=== PATIENT | female | born 1955 | race Caucasian/White ===

== ENCOUNTER 2019-04-22 09:53 | Emergency (ER) | payer BC ==
[~2019-04-22] VITALS: Ht 162.6 cm; Wt 88.6 kg
[2019-04-22] MEDS ORDERED: COZAAR100 MG (10:07)
[2019-04-22] MEDS ORDERED: MOBIC 7.5MG7.5 MG (10:08)
[2019-04-22] MEDS ORDERED: NIACIN250 M2 PO (10:08)
[2019-04-22] MEDS ORDERED: MEVACOR40 MG (10:08)
[2019-04-22] MEDS ORDERED: ASPIRIN 81M81 MG/TA2 PO (10:09)
[2019-04-22 13:08] VITALS: BP 136/89; PULSE 63; TEMP 99
== END 2019-04-22 13:10 | disposition home or self-care (01) ==
LOC: COL.ER 09:53
DX: M70.32 Other bursitis of elbow, left elbow (principal); L03.114 Cellulitis of left upper limb; Z79.82 Long term (current) use of aspirin

== ENCOUNTER 2022-09-30 09:18 | Day surgery (SDC) | payer MEDICARE ==
[~2022-09-30] VITALS: Ht 162.6 cm; Wt 98.9 kg
[~2022-09-30 09:18] MED LIST: ASPIRIN 81M81 MG/TA2 PO; CALCIUM 600600 MG PO; COZAAR 25MG25 MG/TAB PO; COZAAR100 MG; FOSAMAX 70MG TA70 MG PO; LIPITOR20 MG PO; MEVACOR40 MG; MOBIC 7.5MG7.5 MG; MULTI VITAMINS1 TAB PO; NEURONTIN600 MG/TAB PO; NIACIN250 M2 PO; NORCO 325 MG-51 TAB PO
[2022-09-30 10:13] VITALS: BP 123/80; PULSE 46; TEMP 97.7
[2022-09-30 12:44] VITALS: BP 98/60; PULSE 49; TEMP 97.8
[2022-09-30 13:00] VITALS: BP 104/62; PULSE 48
[2022-09-30 13:15] VITALS: BP 116/64; PULSE 46
[2022-09-30 13:30] VITALS: BP 118/60; PULSE 49
--- NOTE | 2022-09-30 20:03 | NUR ---
1244 PT TO [facility] [place] 8 FROM OR S/P LEFT BREAST RECISION WITH BIOPSIES PLACED ON MONITOR, VS WDL ON RA (HR IN 40'S - BASELINE TO PT). INCSION TO L BREAST OVER PAST INCISION, CLOSED WITH GLUE -CDI RECEIVED REPORT AND ASSUMED CARE OF PT FROM HAI CAMACHO PLAN TO CALL ~20MIN PRIOR TO DEPARTURE FOR RIDE HOME. A&O, NAD, DENIES COMPLAINT. PROVIDED CRANBERRY JUICE AND MUFFIN FOLLOWING MAC SEDATION - TOLERATED WITHOUT INCIDENT. PT HAS REMAINED A&O, NAD, VSS ON RA, TOLERATING PO, IS WITHOUT SIGNIFICANT COMPLAINT, WITH STEADY GAIT THRU OUT [facility] [place] [facility], WOUND CDI. 1340 IV D/C'D. D/C INSTRUCTIONS, FOLLOW UP APPT REVIEWED AND HANDED TO PT. ALL QUESTIONS AND CONCERNS ADDRESSED TO PT SATISFACTION. 1350 TAKEN TO EXIT VIA W/C BY [facility] [place] [facility] WITH ALL BELONGINGS AND PAPERWORK IN HAND, ASSISTED INTO PASSENGER SEAT OF POV. TO DRIVE HOME.
== END 2022-09-30 13:50 | disposition home or self-care (01) ==
LOC: SDCO 09:18
DX: D05.12 Intraductal carcinoma in situ of left breast (principal)
CPT/HCPCS: J0690; J2704; J3010; J7120

== ENCOUNTER 2022-10-26 11:18 | Day surgery (SDC) | payer MEDICARE ==
[~2022-10-26] VITALS: Ht 162.6 cm; Wt 98.7 kg
[2022-10-26 11:43] VITALS: BP 130/71; PULSE 55; TEMP 97.9
[2022-10-26 15:15] VITALS: BP 100/52; PULSE 50; TEMP 96.8
[2022-10-26 15:30] VITALS: BP 100/76; PULSE 50
[2022-10-26 15:45] VITALS: BP 114/64; PULSE 50
[2022-10-26 16:00] VITALS: BP 127/67; PULSE 52
--- NOTE | 2022-10-26 16:15 | NUR ---
1515 RETURNS TO ROOM 7 PER CART. AWAKE, ALERT. RESP UNLABORED. HOB ELEVATED 40 DEGREES. INCISION LEFT BREAST INTACT. NO REDNESS, DRAINAGE OR EDEMA OBSERVED. DENIES DISCOMFORT. VITAL SIGNS OBTAINED. CALL LIGHT AT SIDE 1530 TOLERATES PO JUICE AND MUFFIN WITHOUT NAUSEA. 1545 DISCHARGE INSTRUCTIONS REVIEWED. PATIENT VERBALIZES UNDERSTANDING. COPY PROVIDED IN DISCHARGE FOLDER 1600 SITS ON EDGE OF CART. DRESSES SELF. WILL AWAIT 'S ARRIVAL FOR TRANSPORT HOME
== END 2022-10-26 16:15 | disposition home or self-care (01) ==
LOC: SDCO 11:18
DX: D05.12 Intraductal carcinoma in situ of left breast (principal)
CPT/HCPCS: J0690; J1100; J1885; J2405; J2704; J3010; J7120

== ENCOUNTER → 2022-11-03 | Outpatient (CLI) | payer MEDICARE, OTHER | LOC: COL.RAD 12:53 → MC.RAD 13:30 → COL.RAD 13:30 | DX: D05.12 Intraductal carcinoma in situ of left breast (principal) | CPT/HCPCS: A9520 ==

== ENCOUNTER 2022-11-04 07:13 | Day surgery (SDC) | payer MEDICARE, OTHER ==
[~2022-11-04] VITALS: Ht 162.6 cm; Wt 98.0 kg
[2022-11-04] VITALS (13 sets, daily range): BP systolic 108–149; BP diastolic 56–89; PULSE 52–67; TEMP 97.9–98.2
[2022-11-04] MEDS ORDERED: NORCO 325 MG-51 TAB PO (12:48)
--- NOTE | 2022-11-04 13:48 | NUR ---
Patient arrived to the unit from PACU at 1325. Patient alert and oriented. Mayco wrap dressing to left breast dry and intact. KALYAN in place and no drainage noted. Patient oriented to the room and the use of call. Family member at the bedside. Patient denies pain at this time.
--- NOTE | 2022-11-04 18:29 | NUR ---
Patient sitting up in bed chatting with family members, Patient consumed 100% of dinner. No episodes of n/v. IV saline lock. Left breast dressing intact. Emptied 20cc of serosanguineous drainage from KALYAN drain. Patient denies pain at this time. Call within reach.
--- NOTE | 2022-11-04 21:15 | NUR ---
PT IN BED, AWAKENED FOR HS MED. HAS SCDS ON, REMOVED TO LET PT GO TO THE BATHROOM, STEADY GAIT. VOIDS AND BACK TO BED, SCDS ON. HAS INT TO RFA. LT BREAST DRSG D/I, MARK ANTHONY WRAP SECURING. PT DENIES PAIN AT THIS TIME. EMPTIED 10CC BLOODY DRAINAGE FROM KALYAN DRAIN.
[2022-11-05 03:34] VITALS: BP 110/71; PULSE 71; TEMP 97.9
--- NOTE | 2022-11-05 03:45 | NUR ---
PT REPORTS CONSTANT HEADACHE, TYLENOL 650MG PO GIVEN, PT DID NOT WANT TO TRY NORCO AT THIS TIME.
[2022-11-05 08:00] VITALS: BP 127/68; PULSE 60; TEMP 98.2
--- NOTE | 2022-11-05 09:13 | NUR ---
Patient resting in bed. She tolerated breakfast. Denies nausea. Discomfort reported to LUQ, after lengthy discussion, she decided to take a dose of Motrin. Left Chest Insision edges well approximated, dressing in place, but loose. Kvng drain to compression,education provided, she is understanding. Int. Will await discharge orders
--- NOTE | 2022-11-05 10:55 | NUR ---
Patient ready for discharge. rounded, plan of care reviewed. All discharge education given to patient and her family. Kvng drain reviewed. Incisions care discussed. Home med list with medication safety & new script for norco reviewed. INT DC. Patient wheeled out with all belongings, her family taking her home.
== END 2022-11-05 11:03 | disposition home or self-care (01) ==
LOC: SDCO 07:13 → SURG 13:44 → SDCO 11-05 11:03
DX: D05.12 Intraductal carcinoma in situ of left breast (principal); D24.2 Benign neoplasm of left breast; I10 Essential (primary) hypertension; Z79.899 Other long term (current) drug therapy
CPT/HCPCS: OP; J0690; J1100; J2250; J2405; J2704; J2795; J3010; J7120